=== PATIENT | male | born 1990 | race Caucasian/White ===

== ENCOUNTER 2016-08-02 17:11 | Inpatient (IN) | payer BC, OTHER ==
[~2016-08-02] VITALS: Ht 177.8 cm; Wt 81.6 kg
[2016-08-02 22:00] VITALS: BP 129/92
[2016-08-02] MEDS ORDERED: ONDANSETRON ODT 4 MG TAB.RAPDIS SL PRN (22:00)
[2016-08-02] MEDS ORDERED: HYDROXYZINE PAMOATE 25 MG CAPSULE PO PRN (22:00)
[2016-08-02] MEDS ORDERED: MIRALAX 17 GM POWD.PACK PO PRN (22:00)
[2016-08-02] MEDS ORDERED: MAG HYDROX/AL HYDROX/SIMETH 30 ML LIQUID UDC PO PRN (22:00)
[2016-08-02] MEDS ORDERED: ONDANSETRON 4 MG/2 ML VIAL IM PRN (22:00)
[2016-08-02] MEDS ORDERED: MAGNESIUM HYDROXIDE 30 ML LIQUID UDC PO PRN (22:00)
[2016-08-02] MEDS ORDERED: BUPRENORPHINE HCL 2 MG TAB.SUBL SL PRN (22:00)
[2016-08-02] MEDS ORDERED: ACETAMINOPHEN 325 MG TABLET PO PRN (22:00)
[2016-08-02] MEDS ORDERED: METHOCARBAMOL 750 MG TABLET PO PRN (22:00)
[2016-08-02] MEDS ORDERED: diphenhydrAMINE 50 MG CAPSULE PO PRN (22:00)
[2016-08-02] MEDS ORDERED: CLONIDINE HCL 0.1 MG TABLET PO PRN (22:00)
[2016-08-02] MEDS ORDERED: DICYCLOMINE HCL 20 MG TABLET PO PRN (22:00)
[2016-08-02] MEDS ORDERED: IBUPROFEN 600 MG TABLET PO PRN (22:00)
[2016-08-02] MEDS ORDERED: LOPERAMIDE HCL 2 MG CAPSULE PO PRN ×2 (22:00)
--- NOTE | 2016-08-02 22:05 | NUR ---
Pre-admission assessment Patient is a 25-year old, male, seen at intake, AAOx4, no SOB nor anxiety noted at this time. Pt is ambulatory with steady gait. Pt reported the following substance use: 1) Xanax-per pt, he started using at age 14 as prescribed by his PCP for multiple Psych diagnoses but patient admitted to abusing the detox/medication. For at least 1 year, patient has been taking 8 mg PO daily. Last use was 08/02/2016 at 1000, 8 mg PO. 2) Heroin-per pt, he started using at age 20 and started with smoking the substance. For the past 3 years, patient verbalized using the substance via IV 3-4 gms daily, save for when he was in detox/treatment. Last use was 08/02/2016 at 2100, 0.5 gm IV. 3) Methampetamine-per pt, he started using at age 23 and since then, patient verbalized using the substance via IV 1.5 gms daily, save for when he was in detox/ treatment. Last use was 08/02/2016 at 1900, 0.5 gm IV. 4) Cocaine-per pt, he started using at age 17 and since then has been using 3.5 weekly, on average, via snorting. Last use was 07/30/2016, 3.5 gms snort. Vital signs taken and as follows: VB=788/91, P=102, O2 sat on RA=97%, RR=20, T=98.1. Pt verbalized instructions and teachings regarding disposal of narcotic and other controlled home meds, unit protocols such as taking of vital signs Q4H and handling and disposal of contraband.
[2016-08-02 22:29] LABS: BASOPHILS # (AUTO) 0.1 K/uL (0.0-8.0); BASOPHILS % (AUTO) 1.2 % (0.0-2.0); EOSINOPHILS # (AUTO) 0.1 K/uL (0.0-0.7); EOSINOPHILS % (AUTO) 2.2 % (0.0-7.0); HEMATOCRIT 39.9 % (40-50); HEMOGLOBIN 13.8 G/DL (14.0-18.0); LYMPHOCYTES # (AUTO) 2.2 K/UL (0.8-4.8); LYMPHOCYTES % (AUTO) 34.1 % (20.5-51.5); MEAN CORPUSCULAR HEMOGLOBIN 29.5 UUG (27.0-31.0); MEAN CORPUSCULAR HGB CONC 35 g/dL (32.0-37.0); MEAN CORPUSCULAR VOLUME 85.6 FL (82.0-92.0); MONOCYTES # (AUTO) 0.4 K/UL (0.1-1.30); MONOCYTES % (AUTO) 5.7 % (0.0-11.0); NEUTROPHILS # (AUTO) 3.8 K/UL (1.8-8.9); NEUTROPHILS % (AUTO) 56.8 % (38.5-71.5); PLATELET COUNT (AUTO) 166 K/UL (150-450); RED BLOOD CELL COUNT(AUTO) 4.66 MIL/UL (4.7-6.1); RED CELL DISTRIBUTION WIDTH 15.2 % (11.5-14.5); WHITE BLOOD COUNT (AUTO) 6.6 K/UL (4.0-11.2)
[2016-08-02 22:44] LABS: ALANINE AMINOTRANSFERASE 65 U/L (16-63); ALBUMIN 4.3 g/dL (3.4-5.0); ALKALINE PHOSPHATASE 75 U/L (50-136); ASPARTATE AMINOTRANSFERASE 36 U/L (15-37); BILIRUBIN,TOTAL 0.9 mg/dL (0.2-1.0); CALCIUM 9.2 mg/dL (8.5-10.1); CARBON DIOXIDE 28 mmol/L (21-32); CHLORIDE 103 mmol/L (98-107); GFR 91 mL/min (>60); GLUCOSE 112 mg/dL (74-106); MAGNESIUM 1.9 mg/dL (1.8-2.4); POTASSIUM 3.5 mmol/L (3.5-5.1); SODIUM SERUM 140 mmol/L (136-145); TOTAL PROTEIN, SERUM 8.6 g/dL (6.4-8.2); UREA NITROGEN, BLOOD 16 mg/dL (7-18)
--- NOTE | 2016-08-02 22:45 | NUR ---
ADMISSION Patient is a 25-year old, male, admitted and escorted by [facility] at 2225 to unit. Patient verbalized he is currently homeless after he left AMA at [facility] in July 05 of this year. Skin check done, no open skin noted. With multiple slash du/scars primarily on the left forearm due to history of multiple suicide attempts, the last attempt was in 2011. Currently, patient denies Suicidal Ideation nor Homicidal Ideation. No edema noted. Pt is ambulatory with steady gait. Pt stands 5'10" and weighs 180 pounds per standing scale. Vital signs are as follows: BP-131/88, T-97.9, P-97, RR-18 and SPO2 on RA=99%. Patient is AAOx4 and with no anxiety noted at this time. Lung sounds clear bilaterally upon auscultation. No cough noted and bowel sounds are present on all quadrants. PERRLA and pupils are 2 mm upon visual check. Pt reports NKA, on Regular Diet and is Full Code. Pt denies any seizure history. Per pt, withdrawal symptoms are Insomnia, chills, diarrhea, nausea and vomiting, colds sweats, irritability, anxiety, isolation, generalized body pain and goosebumps. Substance history as follows: 1) Xanax-per pt, he started using at age 14 as prescribed by his PCP for multiple Psych diagnoses but patient admitted to abusing the detox/medication. For at least 1 year, patient has been taking 8 mg PO daily. Last use was 08/02/2016 at 1000, 8 mg PO. 2) Heroin-per pt, he started using at age 20 and started with smoking the substance. For the past 3 years, patient verbalized using the substance via IV 3-4 gms daily, save for when he was in detox/treatment. Last use was 08/02/2016 at 2100, 0.5 gm IV. 3) Methampetamine-per pt, he started using at age 23 and since then, patient verbalized using the substance via IV 1.5 gms daily, save for when he was in detox/ treatment. Last use was 08/02/2016 at 1900, 0.5 gm IV. 4) Cocaine-per pt, he started using at age 17 and since then has been using 3.5 weekly, on average, via snorting. Last use was 07/30/2016, 3.5 gms snort. Patient verbalized the he does not drink alcohol. Longest sobriety per pt is 1.5 months, from 2009 to 2010. 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 Per pt, PCP is Dr. Neto Arias and Psychiatirist is Dr. Nielson. Home medications mentioned by the patient that he is supposed to take but is currently not taking because of his homeless statues were reconciled. Treatment history as follows: 1) [facility] in [place], [place]- July 02 to 2016- left AMA 2) [facility] in [place], [place]- June 21-2016- got kicked out due to having sex with other residents 3) [facility] in [place], [place]- March 2015 4) [facility] in [place], [place]- 2014 Patient reports smoking cigarettes, Newports, about 1 pack daily. Oriented patient to room and instructed with the use of the call light, placed within reach. Fall, universal, seizure and safety precautions implemented. Kept patient warm, dry and comfortable. No c/o significant pain at this time All needs met. Information relayed to Dr. Mann. Patient refused Pneumonia vaccine despite explanation of risks and benefits and Flu vaccine is out of season. COWS=3, CIWA=2. Will continue to monitor.
[2016-08-02 22:53] LABS: ETHANOL < 3 MG/DL (0-0); THYROID STIMULATING HORMONE 2.701 mIU/mL (0.358-3.740)
[2016-08-02 22:55] LABS: *AMPHETAMINE, URINE POSITIVE (NEGATIVE); *BARBITURATE, URINE NEGATIVE (NEGATIVE); *CANNABINOID, URINE NEGATIVE (NEGATIVE); *COCCAINE, URINE NEGATIVE (NEGATIVE); *OPIATE, URINE POSITIVE (NEGATIVE); *PHENCYCLIDINE SCREEN,URINE NEGATIVE (NEGATIVE)
[2016-08-02 23:25] LABS: HIV-1 p24 ANTIGEN NON REACTIVE (NONREACTIVE); HIV-1/2 ANTIBODY NON REACTIVE (NONREACTIVE)
[2016-08-03] VITALS: BP 138/89
[2016-08-03] MEDS ORDERED: ARIP10TA15 PO (01:48)
[2016-08-03] MEDS ORDERED: ZOLP10TA2 PO (01:48)
[2016-08-03] MEDS ORDERED: FLUO40CA8 PO (01:48)
[2016-08-03 04:00] VITALS: BP 135/91
--- NOTE | 2016-08-03 07:12 | NUR ---
End of Shift Patient is a 25-year old, male, admitted for Xanax, Heroin and Methamphetamine Dependence. 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 With NKA, on Regular Diet and is Full Code. Pt denies any seizure history. Currently on PRN meds. Dr. Mann to evaluate patient in the morning. Patient is AAOx4 and with mild anxiety noted at this time. No SOB observed. Pt is ambulatory with steady gait, with no skin issues. Fall, universal and safety prec in place. Call light within reach. All needs met. Kept pt warm, dry and comfortable. Latest COWS=4, CIWA=4, slept for 2 hours . Endorsed to AM shift nurse for continuity of care.
[2016-08-03 08:03] VITALS: BP 100/60
--- NOTE | 2016-08-03 08:20 | NUR ---
START OF SHIFT: RECEIVED PT LAYING IN BED WITH EYES CLOSED. RESPIRATIONS EVEN AND UNLABORED. EASILY AROUSABLE. 1:1 IN PROGRESS. SITTER AT BEDSIDE.PT REFUSES TO WAKE UP FOR ASSESSMENT AND MEDS. WILL ATTEMPT AGAIN TO ASSESS AND MEDICATE IN A SHORT WHILE. WILL CONTINUE TO MONITOR AND OFFER SUPPORT.
[2016-08-03] MEDS: MULTIVITAMINS,THERAPEUTIC TABLET PO SCH (09:00)
[2016-08-03] MEDS ORDERED: TUBERCULIN,PURIF.PROT.DERIV. 5 TU/0.1 ML TEST ID ONE ×2 (09:00→15:00)
[2016-08-03] MEDS ORDERED: LORAZEPAM 1 MG TABLET PO PRN ×2 (09:30)
[2016-08-03] MEDS ORDERED: LORAZEPAM 2 MG/1 ML VIAL IM PRN (09:30)
--- NOTE | 2016-08-03 10:05 | NUR ---
CIWA AND COWS DEFERRED. PT IS ASLEEP. 0900 MEDS HELD. MADE AWARE. WILL CONTINUE TO MONITOR.
[2016-08-03 12:00] VITALS: BP 100/59
[2016-08-03] MEDS: LORAZEPAM 1 MG TABLET PO SCH ×3 (13:00→21:00)
[2016-08-03] MEDS: BUPRENORPHINE HCL 2 MG TAB.SUBL SL SCH ×3 (13:00→21:00)
[2016-08-03] MEDS: GABAPENTIN 300 MG CAPSULE PO SCH (15:00)
[2016-08-03 16:00] VITALS: BP 122/80
--- NOTE | 2016-08-03 16:32 | NUR ---
1300 MEDS HELD. CIWA AND COWS DEFERRED.
--- NOTE | 2016-08-03 17:30 | NUR ---
PT IS A/O X 4. HE REPORTS SOME MILD BODY ACHES BUT HIS MAIN COMPLAINT IS CONSTIPATION.PRN MOM GIVEN. COWS 1 CIWA 0. HE HAS NOT EATEN ALL DAY AND SAYS HE HAS NO APPETITE.HE REPORTS FATIGUE AND STATES HE JUST WANTS TO GO BACK TO SLEEP. CXR ORDERED. WILL CONTINUE TO MONITOR AND OFFER SUPPORT.
[2016-08-03] MEDS ORDERED: MIRALAX 17 GM POWD.PACK PO PRN (17:45)
[2016-08-03] MEDS ORDERED: MAGNESIUM HYDROXIDE 30 ML LIQUID UDC PO PRN (17:45)
--- NOTE | 2016-08-03 18:44 | NUR ---
END OF SHIFT: PT STAYED IN BED SLEEPING ALL OF SHIFT.HE CONTINUES ON 1:1. ALL SCHEDULED MEDS HELD DUE TO SEDATION. MD AWARE. COWS AND CIWA DEFERRED FOR 0800 AND 1200. HE AWOKE AFTER 1700. CIWA 0 COWS 1. HE DID NOT EAT ALL OF SHIFT. ENCOURAGED FLUIDS AND A SHOWER TONIGHT. HE STATES HE JUST WANTS TO CONTINUE SLEEPING. HE C/O CONSTIPATION. PRN MOM GIVEN . WILL PASS SHIFT REPORT TO ONCOMING NIGHT NURSE.
--- NOTE | 2016-08-03 19:45 | NUR ---
START OF SHIFT Received report from day shift nurse. Pt is lying in bed resting. He is easily arousable to verbal stimulation. He is a 25 yo male admitted to [facility] on 08/02 for heroin, xanax, and methamphetamine dependence. Pt is A&O x4 and ambulatory. NKA, full code status, and on a regular diet. He has a PMH of GERD, ulcer, compressed disc, anxiety, panic attacks, schizo-affective DO, bipolar DO, depression, disassociative DO, suicide attempt in 2011, 5150 due to danger to self. On admission he admitted to using xanax 8mg/day, heroin 3-4mg per day, methamphetamine 1.5 grams per day, and cocaine 3.5 grams per day. He is ordered a subutex and Ativan taper. Tapers have not been administered throughout the day due to patient sleeping and minimal withdrawal symptoms. He reports hot and cold flashes and mild generalized pain. Pt denies SI. Fall precautions in place. Bed is down with call light in reach.
[2016-08-03 20:00] VITALS: BP 96/49
[2016-08-03] MEDS ORDERED: GABAPENTIN 300 MG CAPSULE PO SCH (21:00)
[2016-08-04] VITALS: BP 107/54
[2016-08-04 04:00] VITALS: BP 113/61
--- NOTE | 2016-08-04 07:25 | NUR ---
END OF SHIFT Report provided to day shift nurse. Pt is lying in bed resting. He is a 25 yo male admitted to [facility] on 08/02 for heroin, xanax, and methamphetamine dependence. Pt is A&O x4 and ambulatory. NKA, full code status, and on a regular diet. He has a PMH of GERD, ulcer, compressed disc, anxiety, panic attacks, schizo-affective DO, bipolar DO, depression, disassociative DO, suicide attempt in 2011, 5150 due to danger to self. On admission he admitted to using xanax 8mg/day, heroin 3-4mg per day, methamphetamine 1.5 grams per day, and cocaine 3.5 grams per day. He is ordered a subutex and Ativan taper. Pt slept throughout the shift. Induction subutex dose still not administered due to low COWS score. No PRN medications administered. Last COWS 3 and CIWA 2. He drank 240mL and slept for 10 hours. Fall precautions in place. Bed is down with call light in reach.
[2016-08-04 08:00] VITALS: BP 122/65
--- NOTE | 2016-08-04 08:05 | NUR ---
START OF SHIFT: RECEIVED PT A/O X 4. HE IS DISHEVELED AND MILDLY ODOROUS. HE C/O BODY ACHES, CHILLS,RUNNY NOSE,SWEATS AND CHILLS. COWS 13. INDUCTION DOSE OF SUBOXONE ADMINISTERED. ATIVAN ALSO ADMINISTERED ORDERED. COWS 13 CIWA 0. ENCOURAGED INCREASED FLUIDS TO ASSIST IN FACILITATING DETOX PROCESS. ENCOURAGED HIM TO EAT FOR PROPER NUTRITION. PT AGREES TO SHOWER. WILL CONTINUE TO MONITOR AND PROVIDE SAFE AND SUPPORTIVE ENVIRONMENT.
[2016-08-04] MEDS ORDERED: FLUOXETINE HCL PO SCH (09:00)
[2016-08-04] MEDS: MULTIVITAMINS,THERAPEUTIC TABLET PO SCH (09:01)
[2016-08-04] MEDS: ARIPIPRAZOLE 10 MG TABLET PO SCH (09:02)
[2016-08-04] MEDS: LORAZEPAM 1 MG TABLET PO SCH ×3 (09:02→20:48)
[2016-08-04] MEDS: GABAPENTIN 300 MG CAPSULE PO SCH ×3 (09:02→20:49)
[2016-08-04] MEDS: FLUOXETINE HCL 20 MG CAPSULE PO SCH (09:02)
[2016-08-04] MEDS: BUPRENORPHINE HCL 2 MG TAB.SUBL SL SCH ×3 (09:03→20:50)
[2016-08-04 12:00] VITALS: BP 105/64
[2016-08-04 14:12] LABS: HCV AB >11.0 s/co ratio (0.0-0.9); HEPATITIS B CORE AB, IgM Negative (Negative); HEPATITIS B SURFACE AG Negative (Negative)
[2016-08-04 16:00] VITALS: BP 134/64
--- NOTE | 2016-08-04 18:46 | NUR ---
END OF SHIFT: PT GOT INDUCTION DOSE OF SUBUTEX THIS AM COWS WAS 13 HE REPORTED MUSCLE ACHES,CHILLS,SWEATS AND RESTLESSNESS.HE ALSO STARTED ATIVAN TAPER.HE TOLERATED WELL.LAST COWS 4 LAST CIWA 1. HE SHOWERED AND LINENS CHANGED.. HIS APPETITE IS BETTER. HE REPORTED SOCIAL ANXIETY AND DI NOT WANT TO LEAVE HIS ROOM THIS AM BUT AFTER STRONG ENCOURAGEMENT PT ATTENDED GROUPS AND INTERACTED WITH PEERS.HE IS COMPLAINT WITH TREATMENT PLAN. WILL PASS SHIFT REPORT TO ONCOMING NIGHT NURSE.
--- NOTE | 2016-08-04 19:50 | NUR ---
START OF SHIFT Received report from day shift nurse. Pt is lying in bed resting. He is a 25 [address] to [facility] on 08/02 for heroin, xanax, and methamphetamine dependence. Pt is A&O x4 and ambulatory. NKA, full code status, and on a regular diet. He has a PMH of GERD, ulcer, compressed disc, anxiety, panic attacks, schizo-affective DO, bipolar DO, depression, disassociative DO, suicide attempt in 2011, 5150 due to danger to self. On admission he admitted to using xanax 8mg/day, heroin 3-4mg per day, methamphetamine 1.5 grams per day, and cocaine 3.5 grams per day. He started Subutex and Ativan tapers today. He reports hot and cold flashes, shoulder aches, anxiety, and has moist skin. He denies SI/HI. Tapers due tonight. Fall precautions in place. Bed is down with call light in reach.
[2016-08-04 20:00] VITALS: BP 118/67
--- NOTE | 2016-08-04 20:50 | NUR ---
PRN Robaxin administration Pt reports shoulder aches 08/27. PRN Robaxin administered.
--- NOTE | 2016-08-04 21:50 | NUR ---
PRN Robaxin reassessment PRN Robaxin effective. Pt reports relief of shoulder aches.
[2016-08-05] VITALS: BP 118/67
--- NOTE | 2016-08-05 | NUR ---
0000 COWS and CIWA deferred. They are ordered Q4HWA. Vital signs obtained.
[2016-08-05 04:00] VITALS: BP 112/57
--- NOTE | 2016-08-05 04:00 | NUR ---
0000 COWS and CIWA deferred. They are ordered Q4HWA. Vital signs obtained. Addendum: 08/05/16 at 0724 by DARIAN RAPHAEL RN Correction: 0400 COWS and CIWA deferred. [facility]. Vital signs obtained.
--- NOTE | 2016-08-05 07:20 | NUR ---
END OF SHIFT Report provided to day shift nurse. Pt is lying in bed resting. He is a 25 yo male admitted to [facility] on 08/02 for heroin, xanax, and methamphetamine dependence. Pt is A&O x4 and ambulatory. NKA, full code status, and on a regular diet. He has a PMH of GERD, ulcer, compressed disc, anxiety, panic attacks, schizo-affective DO, bipolar DO, depression, disassociative DO, suicide attempt in 2011, 5150 due to danger to self. On admission he admitted to using xanax 8mg/day, heroin 3-4mg per day, methamphetamine 1.5 grams per day, and cocaine 3.5 grams per day. He started Subutex and Ativan tapers on 08/04. PRN Robaxin administered. Last COWS 7 and CIWA 4 while awake. He drank 540mL and slept for 8 hours. Fall precautions in place. Bed is down with call light in reach.
[2016-08-05 08:00] VITALS: BP 128/83
--- NOTE | 2016-08-05 08:00 | NUR ---
START OF SHIFT: RECEIVED PT PACING AROUND ROOM AND DANCING. HE STATES HE FEELS VERY MANIC AND STATES HE NEEDS TO CALM DOWN. HE REPORTS MILD ANXIETY AND MILD BODY ACHES BUT HIS MAIN CONCERN IS THE JOEL. OFFERED SUPPORT.COWS 3 CIWA 1. HE CONTINUES ON SUBUTEX/ATIVAN TAPER. HE STATES HE SLEPT OK AND IS EATING WELL. PT IS INTERACTING WITH PEERS AND ATTENDING GROUPS. WILL MAKE PSYCH. AWARE. WILL CONTINUE TO MONITOR AND OFFER SUPPORT.
[2016-08-05] MEDS: LORAZEPAM 1 MG TABLET PO SCH ×4 (08:15→20:34)
[2016-08-05] MEDS: FLUOXETINE HCL 20 MG CAPSULE PO SCH (08:15)
[2016-08-05] MEDS: MULTIVITAMINS,THERAPEUTIC TABLET PO SCH (08:15)
[2016-08-05] MEDS: GABAPENTIN 300 MG CAPSULE PO SCH ×3 (08:16→20:33)
[2016-08-05] MEDS: ARIPIPRAZOLE 10 MG TABLET PO SCH (08:16)
[2016-08-05] MEDS ORDERED: BUPRENORPHINE HCL 2 MG TAB.SUBL SL SCH (09:00)
[2016-08-05 12:00] VITALS: BP 117/65
[2016-08-05] MEDS: BUPRENORPHINE HCL 2 MG TAB.SUBL SL SCH ×2 (15:16→20:33)
[2016-08-05 16:00] VITALS: BP 104/62
[2016-08-05] MEDS: DIVALPROEX 250 MG TABLET.DR PO SCH (17:00)
--- NOTE | 2016-08-05 17:00 | NUR ---
HELD 1700 MEDS PT IS ASLEEP. RESPIRATIONS EVEN AND UNLABORED. CALL FINK IN REACH.
--- NOTE | 2016-08-05 18:38 | NUR ---
END OF SHIFT: PT CONTINUES ON SUBUTEX AND ATIVAN TAPERS LAST COWS 2 CIWA 1. HE REPORTS SOME ANXIETY AND MILD BODY ACHES. THIS MORNING HE REPORTED HAVING A MANIC EPISODE AND HE WAS PACING AND DANCING. PSYCH MD ASSESSED PT AND NEW ORDER FOR DEPAKOTE. HE SLEPT SOME OF THE DAY AND THE JOEL DISSIPATED. HIS APPETITE IS GOOD. PT ATTENDED SOME GROUPS AND INTERACTED WITH PEERS.1700 MEDS HELD DUE TO SEDATION, WILL PASS SHIFT REPORT TO ONCOMING NIGHT NURSE.
--- NOTE | 2016-08-05 19:15 | NUR ---
Start of Shift Note: Patient is a 25 y/o male admitted on 08/02/16 for Opiate and Benzo dependence. Patient has medical history of GERD, Ulcer, Compressed disc (2009), Anxiety, Panic Attacks, Schizo-affective Disorder, Bipolar disorder, Depression, Dissociative disorder, Suicide Attempts and history of 5150. Patient is on a regular diet with no known food and drug allergies. Full Code status. Patient is on a 5-day Subutex and 5-day Ativan taper. Patient s 1700 medications were held. No PRN medications were given during day shift. Last COWS 2 CIWA 1 noted. Patient is alert & oriented to name, place & situation. No shortness of breath noted. Respiration even & unlabored. Abdomen soft & non-distended. Slight nausea noted with no episode of vomiting. Patient complains of slight sweating, chills & 4/10 lower back ache. No bilateral hand tremors noted. Patient denies hallucinations. Safety precautions are in place. Bed locked in lowest position. Both side rails up. Call light within pts reach. Will continue to monitor patient.
[2016-08-05 20:00] VITALS: BP 101/60
--- NOTE | 2016-08-05 20:34 | NUR ---
PRN Zofran Patient complains of nausea. No episode of vomiting noted. PRN Zofran administered as ordered. Will reassess in 1 hour hour. Will continue to monitor patient.
--- NOTE | 2016-08-05 21:34 | NUR ---
PRN Reassessment PRN effective. Patient verbalized improved nausea. Pt lying in bed with no s/s of distress. Will continue to monitor.
[2016-08-06] VITALS: BP 108/76
[2016-08-06 04:00] VITALS: BP 100/55
--- NOTE | 2016-08-06 07:04 | NUR ---
End of Shift Note: Pt had an uneventful night. Pt continued on his Subutex and Ativan taper and is tolerating well. Pt reported some body aches, nausea & sweating last night. Last COWS is 5 CIWA 5. Pt was given PRN Zofran for nausea and was effective. Pt remains stable and vitals remains WNL. Pt is compliant to treatment & medications. Pt still asleep at this time. No s/s of distress noted. Pt slept for a total of 10 hours. Pt consumed 800ml of fluids. Voided 2x with no bowel movement. All needs attended & met. Safety precautions are in place. Will endorse pt to day shift nurse.
--- NOTE | 2016-08-06 07:45 | NUR ---
Start of shift note; Received report from night nurse. Patient is a 25 year old male admitted on 08/02/16 for Benzo/Opiate/Meth/Cocaine dependence. Patient was placed on a 5 day Subutex and 5 day Ativan taper. Patient reported history of GERD, Anxiety, panic attack, schizo-affective Disorder, bipolar disorder, depression, dissociative disorder, suicide attempts in 2011. Patient is on fall and seizure precautions. Bed in lowest position, call light within reach. Will continue to monitor patient.
[2016-08-06 08:00] VITALS: BP 122/77
[2016-08-06] MEDS: MULTIVITAMINS,THERAPEUTIC TABLET PO SCH (09:07)
[2016-08-06] MEDS: LORAZEPAM 1 MG TABLET PO SCH ×3 (09:08→21:10)
[2016-08-06] MEDS: BUPRENORPHINE HCL 2 MG TAB.SUBL SL SCH ×3 (09:08→21:11)
[2016-08-06] MEDS: DIVALPROEX 250 MG TABLET.DR PO SCH ×3 (09:08→17:01)
[2016-08-06] MEDS: FLUOXETINE HCL 20 MG CAPSULE PO SCH (09:08)
[2016-08-06] MEDS: ARIPIPRAZOLE 10 MG TABLET PO SCH (09:08)
[2016-08-06] MEDS: GABAPENTIN 300 MG CAPSULE PO SCH ×3 (09:08→21:10)
[2016-08-06 12:00] VITALS: BP 127/68
[2016-08-06 16:00] VITALS: BP 102/72
--- NOTE | 2016-08-06 18:21 | NUR ---
End of shift note; Patient is AOX4. Patient is a 25 year old male admitted on 08/02/16 for Benzo/Opiate/Meth/Cocaine dependence. Patient was placed on a 5 day Subutex and 5 day Ativan taper. Patient reported history of GERD, Anxiety, panic attack, schizo-affective Disorder, bipolar disorder, depression, dissociative disorder, suicide attempts in 2011. Patient is on fall and seizure precautions. Bed in lowest position, call light within reach. Patient remained compliant with treatment plan. Medications were effective in reducing withdrawal symptoms. Met all needs.
--- NOTE | 2016-08-06 19:15 | NUR ---
Start of Shift Note: Patient is a 25 y/o male admitted on 08/02/16 for Opiate and Benzo dependence. Patient has medical history of GERD, Ulcer, Compressed disc (2009), Anxiety, Panic Attacks, Schizo-affective Disorder, Bipolar disorder, Depression, Dissociative disorder, Suicide Attempts and history of 5150. Patient is on a regular diet with no known food and drug allergies. Full Code status. Patient is on a 5-day Subutex and 5-day Ativan taper. No PRN medications were given during day shift. Last COWS 3 CIWA 1 noted. Patient is alert & oriented to name, place & situation. No shortness of breath noted. Respiration even & unlabored. Abdomen soft & non-distended. No nausea noted. Patient complains of slight sweating, & 6/10 body aches, stomach cramps and mild headache. No bilateral hand tremors noted. Patient denies hallucinations. Safety precautions are in place. Bed locked in lowest position. Both side rails up. Call light within pts reach. Will continue to monitor patient.
[2016-08-06 20:00] VITALS: BP 137/80
--- NOTE | 2016-08-06 21:10 | NUR ---
PRN Motrin Patient complains of slight headache and 6/10 body aches. PRN Motrin administered as ordered. Will reassess in 1 hour. Will continue to monitor.
--- NOTE | 2016-08-06 22:10 | NUR ---
PRN Reassessment Patient verbalized relief from headache and body aches. Patient lying in bed and appears comfortable. No s/s of distress noted. Will continue to monitor patient.
[2016-08-07] VITALS: BP 116/78
[2016-08-07 04:00] VITALS: BP 102/56
--- NOTE | 2016-08-07 07:07 | NUR ---
End of Shift Note: Pt is a 25 y/o male admitted for Opiate and Benzo dependence. Pt had an uneventful night. Pt continued on a Subutex and Ativan taper. Pt reported some sweating, body aches, slight headache and stomach cramps last night. Pt received his taper and reported that taper medication is effective in controlling withdrawal symtoms. Last COWS 3 CIWA 5 noted. Pt received PRN Motrin and was effective. Pt remained stable and vitals remains WNL. Pt attended H&I last night. Pt remains compliant with medications as ordered. Pt slept for a total of 9 hours. Pt consumed 500ml of fluids. Voided 1x with no bowel movement. Encourage pt to increase fluid intake. All needs attended & met. Safety precautions are in place. Will endorse pt to day shift nurse.
--- NOTE | 2016-08-07 07:40 | NUR ---
START OF SHIFT NOTE: Received report from night stocker nurse. Patient is a 25 y/o male admitted on 08/02/16 for Opiate and Benzo dependence. Currently on a 5 day Ativan and 5 day Subutex taper. Tolerating well. Pt is alert and oriented X4. Color good, skin warm and dry. Respirations even and unlabored. Safety precautions observed. Call light within reach. Will continue to monitor.
[2016-08-07 08:00] VITALS: BP 121/77
[2016-08-07] MEDS: GABAPENTIN 300 MG CAPSULE PO SCH ×3 (08:52→20:30)
[2016-08-07] MEDS: LORAZEPAM 1 MG TABLET PO SCH ×2 (08:52→20:30)
[2016-08-07] MEDS: FLUOXETINE HCL 20 MG CAPSULE PO SCH (08:52)
[2016-08-07] MEDS: BUPRENORPHINE HCL 2 MG TAB.SUBL SL SCH ×2 (08:52→20:29)
[2016-08-07] MEDS: MULTIVITAMINS,THERAPEUTIC TABLET PO SCH (08:52)
[2016-08-07] MEDS: DIVALPROEX 250 MG TABLET.DR PO SCH ×3 (08:52→16:43)
[2016-08-07] MEDS: ARIPIPRAZOLE 10 MG TABLET PO SCH (08:53)
--- NOTE | 2016-08-07 09:00 | NUR ---
VSS COWS 5 CIWA 5 Pt c/o sweating and anxiety
[2016-08-07 13:20] VITALS: BP 123/83
[2016-08-07 17:29] VITALS: BP 129/83
--- NOTE | 2016-08-07 18:40 | NUR ---
END OF SHIFT NOTE: Report given to manager business nurse. Patient is a 25 y/o male admitted on 08/02/16 for Opiate and Benzo dependence. Currently on a 5 day Ativan and 5 day Subutex taper. Tolerating well. Pt is alert and oriented X4. Color good, skin warm and dry. Respirations even and unlabored. Vital signs have remained stable throughout shift. Last COWS 4 CIWA 4 @ 1700. Safety precautions observed. Call light within reach.
[2016-08-07 20:00] VITALS: BP 126/82
--- NOTE | 2016-08-07 20:00 | NUR ---
Start of Shift Patient is a 25-year old, male, admitted for Opiate and Benzo dependence. Patient placed on a 5-day Ativan and 5-day Subutex tapers, started 08/03/2016 and with no adverse side effects. 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 No Suicidal Ideation nor Homicidal Ideation at this time. Pt with NKA, is on Regular Diet and Full Code. Pt is AAOx4, with mild anxiety noted at this time. No SOB noted, not in respi distress. Pt is ambulatory with steady gait and with intact skin. Fall, universal and safety prec in place. Call light within reach. Kept pt warm, dry and comfortable. All needs met. Latest COWS=4, CIWA=3. Will continue to monitor.
[2016-08-08] VITALS: BP 123/84
[2016-08-08 04:00] VITALS: BP 130/79
--- NOTE | 2016-08-08 07:02 | NUR ---
End of Shift Patient is a 25-year old, male, admitted for Opiate and Benzo dependence. Patient placed on a 5-day Ativan and 5-day Subutex tapers, started 08/03/2016 and with no adverse side effects. 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 No Suicidal Ideation nor Homicidal Ideation at this time. Pt with NKA, is on Regular Diet and Full Code. Pt is AAOx4, with mild anxiety noted at this time. No SOB noted, not in respi distress. Pt is ambulatory with steady gait and with intact skin. Fall, universal and safety prec in place. Call light within reach. Kept pt warm, dry and comfortable. All needs met. Latest COWS=2, CIWA=2, slept for 9 hours. Endorsed to AM shift nurse for continuity of care.
--- NOTE | 2016-08-08 07:37 | NUR ---
START OF SHIFT NOTE: Received report from shift production supervisor nurse. Patient is a 25 y/o male admitted on 08/02/16 for Opiate and Benzo dependence. Currently on a 5 day Ativan and 5 day Subutex taper. Tolerating well. Pt is alert and oriented X4. Color good, skin warm and dry. Respirations even and unlabored. Safety precautions observed. Call light within reach. Will continue to monitor.
[2016-08-08 08:00] VITALS: BP 131/84
[2016-08-08] MEDS: FLUOXETINE HCL 20 MG CAPSULE PO SCH (08:25)
[2016-08-08] MEDS: ARIPIPRAZOLE 10 MG TABLET PO SCH (08:25)
[2016-08-08] MEDS: GABAPENTIN 300 MG CAPSULE PO SCH ×3 (08:25→21:26)
[2016-08-08] MEDS: DIVALPROEX 250 MG TABLET.DR PO SCH ×3 (08:25→17:00)
[2016-08-08] MEDS: MULTIVITAMINS,THERAPEUTIC TABLET PO SCH (08:25)
--- NOTE | 2016-08-08 09:30 | NUR ---
VSS COWS 3 CIWA 3
[2016-08-08 13:27] VITALS: BP 113/53
--- NOTE | 2016-08-08 14:45 | NUR ---
Vistaril 25mg po prn given for anxiety
[2016-08-08 15:14] LABS: *PHENCYCLIDINE SCREEN,URINE NEGATIVE (NEGATIVE)
--- NOTE | 2016-08-08 15:38 | NUR ---
Pt states feels less anxious after Vistaril prn
[2016-08-08 15:50] LABS: *AMPHETAMINE, URINE NEGATIVE (NEGATIVE); *BARBITURATE, URINE NEGATIVE (NEGATIVE); *CANNABINOID, URINE NEGATIVE (NEGATIVE); *COCCAINE, URINE NEGATIVE (NEGATIVE); *OPIATE, URINE NEGATIVE (NEGATIVE)
[2016-08-08 18:00] VITALS: BP 128/77
--- NOTE | 2016-08-08 18:34 | NUR ---
END OF SHIFT NOTE: Report given to supervisor stage carpentry nurse. Patient is a 25 y/o male admitted on 08/02/16 for Opiate and Benzo dependence. Completed a 5 day Ativan and 5 day Subutex taper. To be discharged in AM. Pt is alert and oriented X4. Color good, skin warm and dry. Respirations even and unlabored. Vital signs have remained stable throughout shift. Last COWS 3 CIWA 3 @ 1700. Vistaril 25mg po prn @ 1445. Safety precautions observed. Call light within reach.
[2016-08-08 20:00] VITALS: BP 126/71
--- NOTE | 2016-08-08 20:00 | NUR ---
Start of Shift Patient is a 25-year old, male, admitted for Opiate and Benzo dependence. Patient placed on a 5-day Ativan and 5-day Subutex tapers, started 08/03/2016 and completed with no adverse side effects. 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 No Suicidal Ideation nor Homicidal Ideation at this time. Pt with NKA, is on Regular Diet and Full Code. Pt is AAOx4, with no anxiety noted at this time. No SOB noted, not in respi distress. Pt is ambulatory with steady gait and with intact skin. Fall, universal and safety prec in place. Call light within reach. For discharge tomorrow and patient is aware that he will be discharged. UDS provided. All needs met. Latest COWS=3, CIWA=3. Will continue to monitor.
--- NOTE | 2016-08-08 21:27 | NUR ---
RN note PRN Benadryl Pt c/o inability to sleep. Administered Benadryl 50 mg PO as ordered. Will reassess.
--- NOTE | 2016-08-08 22:30 | NUR ---
RN note reassess Pt asleep on bed, no SOB nor facial grimacing noted. Benadryl effective.
[2016-08-09] VITALS: BP 120/68
[2016-08-09 04:00] VITALS: BP 124/82
--- NOTE | 2016-08-09 07:07 | NUR ---
End of Shift Patient is a 25-year old, male, admitted for Opiate and Benzo dependence. Patient placed on a 5-day Ativan and 5-day Subutex tapers, started 08/03/2016 and with no adverse side effects. 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 No Suicidal Ideation nor Homicidal Ideation at this time. Pt with NKA, is on Regular Diet and Full Code. Pt is AAOx4, with mild anxiety noted at this time. No SOB noted, not in respi distress. Pt is ambulatory with steady gait and with intact skin. Fall, universal and safety prec in place. Call light within reach. Kept pt warm, dry and comfortable. All needs met. Latest COWS=1, CIWA=1, slept for 9 hours. For discharge today and pt is aware. UDS done. Endorsed to AM shift nurse for continuity of care.
[2016-08-09 08:00] VITALS: BP 111/75
--- NOTE | 2016-08-09 08:17 | NUR ---
START OF SHIFT Pt 25 y/o male admitted for heroin, xanax, and methamphetamine dependence. Pt received in room on bed awake watching television. Pt alert and oriented to name, place, and time. Perrla. Skin warm and dry to touch. Respirations even and unlabored. It was reported that pt slept for 9 hours last night. Pt is scheduled to be discharged today. Bed on lowest position with side rails x2 up for safety. Call light within reach. No distress noted at this time.
[2016-08-09] MEDS: FLUOXETINE HCL 20 MG CAPSULE PO SCH (08:23)
[2016-08-09] MEDS: MULTIVITAMINS,THERAPEUTIC TABLET PO SCH (08:23)
[2016-08-09] MEDS: ARIPIPRAZOLE 10 MG TABLET PO SCH (08:23)
[2016-08-09] MEDS: GABAPENTIN 300 MG CAPSULE PO SCH (08:23)
[2016-08-09] MEDS: DIVALPROEX 250 MG TABLET.DR PO SCH (08:23)
[2016-08-09 08:28] VITALS: BP 111/75
--- NOTE | 2016-08-09 08:29 | NUR ---
PRN Pt states feels anxious. Catapres po prn per MD order given and tolerated well.
[2016-08-09] MEDS ORDERED: METH-33 PO (08:57)
[2016-08-09] MEDS ORDERED: Gabapentin PO (08:57)
[2016-08-09] MEDS ORDERED: HYDR-3895 PO (08:57)
[2016-08-09] MEDS ORDERED: CLON0.1T14 PO (08:57)
[2016-08-09] MEDS ORDERED: Ondansetron SL (08:57)
--- NOTE | 2016-08-09 09:29 | NUR ---
PRN EVAL Pt observed on bed with eyes closed resting, but easily arousable to name. Bed on lowest position with side rails x2 up for safety. Call light within reach.
--- NOTE | 2016-08-09 09:50 | NUR ---
DISCHARGE Pt discharged to [facility] via [facility] transport. Pt alert and oriented to name, place, and time. Perrla. Skin warm and dry to touch. Respirations even and unlabored. No hand tremors noted. Pt's belongings, prescriptions, and discharge papers were packed in bag. No belongings in cabinet or cassettes noted. Pt excited about discharge. VS wnl. Let pt know to call Grandmother when he get to the facility , per Pt's Grandmothers request. No distress noted.
[2016-08-10 13:18] LABS: *AMPHETAMINE Positive (.); *BENZODIAZEPINES Positive (.); *CODEINE Positive (.); *HYDROMORPHONE Negative (Cutoff=300); *METHAMPHETAMINE Positive (.); *NORDIAZEPAM Negative (Cutoff=300); *OPIATES Positive ng/mL (Cutoff=300); *OXAZEPAM Positive (.)
== END 2016-08-09 09:50 | disposition other institution (70) | DRG 895 ==
LOC: SRC 21:24
PROVIDERS: ADMIT Internal Medicine; ATTEND Internal Medicine
PROC: HZ2ZZZZ Detoxification Services for Substance Abuse Treatment (ICD-10-PCS; principal; 2016-08-02)
PROC: HZ31ZZZ Individual Counseling for Substance Abuse Treatment, Behavioral (ICD-10-PCS; 2016-08-03)
PROC: HZ41ZZZ Group Counseling for Substance Abuse Treatment, Behavioral (ICD-10-PCS; 2016-08-04)
DX: F11.23 Opioid dependence with withdrawal (principal); F31.4 Bipolar disorder, current episode depressed, severe, without psychotic features; F13.230 Sedative, hypnotic or anxiolytic dependence with withdrawal, uncomplicated; Z91.5 Personal history of self-harm; Z79.899 Other long term (current) drug therapy; F15.10 Other stimulant abuse, uncomplicated; B19.20 Unspecified viral hepatitis C without hepatic coma; F41.9 Anxiety disorder, unspecified
CPT/HCPCS: 36415; 70030-TC; 71010; 80307; 80324; 80346; 80361; 83735; 84443; 85025; 86592; 86705; 86803; 87340; 87806; G6040-TC; J3490; Q0162; Q0163